=== PATIENT | male | born 1955 | race Caucasian/White ===

== ENCOUNTER 2018-04-04 16:49 | Emergency (ER) | payer BC ==
[2018-04-04 17:00] VITALS: BP 151/62
[2018-04-04] MEDS ORDERED: Sodium Chloride 0.9% 10 ML Syringe FLUSH PRN (17:30)
[2018-04-04] MEDS ORDERED: Sodium Chloride 0.9% 1,000 ML IV SCH (17:30)
[2018-04-04] MEDS ORDERED: HYDROmorphone 1 MG/ML Syringe IM ONE (17:30)
[2018-04-04] MEDS ORDERED: Ondansetron 4 MG Tab.DIS PO ONE (17:30)
--- NOTE | 2018-04-04 17:33 | EDM.PDOC ---
ED HPI GENERAL MEDICAL PROBLEM - General Chief Complaint: Abdominal Pain Stated Complaint: L SIDE ABDOMINAL PAIN Time Seen by Provider: 04/04/18 17:22 Source of Information: Reports: Patient History Limitations: Reports: No Limitations - History of Present Illness INITIAL COMMENTS - FREE TEXT/NARRATIVE: Patient is a 62-year-old male who presents to the ED complaining of left flank/ CVA tenderness that started abruptly at 2:00 today while at work. He denied any activities or trauma that precipitated the discomfort. Pain is localized rated a 8 out of 10 at its peak. Constant with waxes and waning in intensity with no radiation. He's had similar symptoms approximately 20 years ago with passing a kidney stone. Has a sensation he needs to urinate but unable to. There's been some slight discomfort with urination as well with no hematuria. He is slightly nauseated with no episodes of emesis. He denies chest pain, abdominal pain, shortness of breath, or fever. He has a history of gout currently on allopurinol. History of hypertension and hypercholesteremia and is on losartan/ HCTZ. Left Lower Abdomen Pain Score (Numeric/FACES): 8 - Related Data Allergies Allergy/AdvReac Type Severity Reaction Status Date / Time prednisone Allergy Cannot Verified 04/04/18 17:00 Remember Home Meds: Home Meds Allopurinol [Zyloprim] 1 tab PO DAILY 04/10/16 [History] Calcium Carbonate/Vitamin D3 [Calcium 500-Vit D3 200 Tablet] 1 tab PO DAILY 05/22 [History] Multivitamin [Poly-Vitamin] 1 tab PO DAILY 04/10/16 [History] Naproxen Sodium [Aleve] 1 - 3 tab PO Q6H PRN 04/10/16 [History] [place]-3/DHA/Epa/Fish Oil [Fish Oil 500 MG Softgel] 1 cap PO DAILY 04/10/16 [ History] Acetaminophen/oxyCODONE [Percocet 325-5 MG] 1 each PO Q6HR PRN #15 tab 04/04/18 [Rx] Losartan/Hydrochlorothiazide [Losartan-HCTZ 100-12.5 MG] 1 tab PO DAILY [History] Ondansetron [Zofran ODT] 4 mg PO Q6H PRN #15 tab.dis 04/04/18 [Rx] Tamsulosin [Tamsulosin 24 Hr] 0.4 mg PO QAM #7 cap.er 04/04/18 [Rx] Past Medical History HEENT History: Reports: Impaired Vision Other HEENT History: wears corrective lenses Cardiovascular History: Reports: High Cholesterol, Hypertension Respiratory History: Reports: None Gastrointestinal History: Reports: None Genitourinary History: Reports: Renal Calculus [employer] History: Reports: None Musculoskeletal History: Reports: Gout, Osteoarthritis Other Musculoskeletal History: left knee pain, R foot fracture, L hip pain Neurological History: Reports: None Psychiatric History: Reports: None Endocrine/Metabolic History: Reports: None Hematologic History: Reports: None Immunologic History: Reports: None Oncologic (Cancer) History: Reports: None Dermatologic History: Reports: Other (See Below) Other Dermatologic History: folliculits, impetigo, skin tags - Past Surgical History Musculoskeletal Surgical History: Reports: Hip Replacement, Other (See Below) Other Musculoskeletal Surgeries/Procedures:: back surgery Social & Family History - Tobacco Use Smoking Status *Q: Current Every Day Smoker Years of Tobacco use: 10 Packs/Tins Daily: 0.5 - Caffeine Use Caffeine Use: Reports: Soda - Recreational Drug Use Recreational Drug Use: No ED ROS GENERAL - Review of Systems Review Of Systems: ROS reveals no pertinent complaints other than HPI. ED EXAM, GI/ABD - Physical Exam Exam: See Below Exam Limited By: No Limitations General Appearance: Alert, WD/WN, Mild Distress Ears: Hearing Grossly Normal Nose: Normal Inspection Throat/Mouth: Normal Voice, No Airway Compromise Respiratory/Chest: No Respiratory Distress, Lungs Clear, Normal Breath Sounds, No Accessory Muscle Use Cardiovascular: Normal Peripheral Pulses, Regular Rate, Rhythm, No Murmur GI/Abdominal Exam: Normal Bowel Sounds, Soft, Non-Tender, No Organomegaly, No Distention, Other (Tenderness noted to the left upper flank along the CVA) (Male) Exam: Deferred (No pain radiating to the testicles or groin.) Back Exam: CVA Tenderness (L) Extremities: Normal Inspection Neurological: Alert, Oriented, CN II-XII Intact, Normal Cognition, No Motor/ Sensory Deficits Psychiatric: Normal Affect, Normal Mood Skin Exam: Warm, Dry, Intact, Normal Color, No Rash Course - Vital Signs Last Recorded V/S: Last Vital Signs Temp 98.1 F 04/04/18 16:57 Pulse 67 04/04/18 16:57 Resp 20 04/04/18 16:57 BP 151/62 H 04/04/18 16:57 Pulse Ox 99 04/04/18 16:57 - Orders/Labs/Meds Orders: Active Orders 24 hr Category Date Time Status Peripheral IV Care [RC] . DIRECTED Care 04/04/18 17:30 Active Sodium Chloride 0.9% [Normal Saline] 1,000 ml Med 04/04/18 17:30 Active IV ASDIRECTED Sodium Chloride 0.9% [Saline Flush] Med 04/04/18 17:30 Active 10 ml FLUSH ASDIRECTED PRN Peripheral IV Insertion Adult [OM.PC] Routine Oth 04/04/18 17:30 Ordered Medication Orders Sodium Chloride (Normal Saline) 1,000 mls @ 200 mls/hr IV ASDIRECTED AAMIR Last Admin: 04/04/18 17:45 Dose: 200 mls/hr Sodium Chloride (Saline Flush) 10 ml FLUSH ASDIRECTED PRN PRN Reason: Keep Vein Open Last Admin: 04/04/18 17:45 Dose: 10 ml Labs: Laboratory Tests 04/04/18 04/04/18 04/04/18 Range/Units 18:30 18:30 18:55 WBC 13.10 H (4.23-9.07) K/mm3 RBC 4.59 L (4.63-6.08) M/mm3 Hgb 14.1 (13.7-17.5) gm/L Hct 41.9 (40.1-51.0) % MCV 91.3 (79.0-92.2) fl MCH 30.7 (25.7-32.2) pg MCHC 33.7 (32.2-35.5) g/dl RDW Std Deviation 42.1 (35.1-43.9) fL Plt Count 171 (163-337) K/mm3 MPV 11.8 (9.4-12.3) fl Neutrophils % (Manual) 80 H (40-60) % Band Neutrophils % 0 (0-10) % Lymphocytes % (Manual) 17 L (20-40) % Atypical Lymphs % 0 % Monocytes % (Manual) 3 (2-10) % Eosinophils % (Manual) 0 L (0.8-7.0) % Basophils % (Manual) 0 L (0.2-1.2) Platelet Estimate Adequate RBC Morph Comment Normal Sodium 141 (136-145) mEq/L Potassium 3.7 (3.5-5.1) mEq/L Chloride 105 (98-107) mEq/L Carbon Dioxide 23 (21-32) mEq/L Anion Gap 16.7 H (5-15) BUN 21 H (7-18) mg/dL Creatinine 1.3 (0.7-1.3) mg/dL Est Cr Clr Drug Dosing 62.75 mL/min Estimated GFR (MDRD) 56 (>60) mL/min BUN/Creatinine Ratio 16.2 (14-18) Glucose 122 H (80-115) mg/dL Calcium 9.0 (8.5-10.1) mg/dL Total Bilirubin 0.5 (0.2-1.0) mg/dL AST 51 H (15-37) U/L ALT 76 H (16-63) U/L Alkaline Phosphatase 78 (46-116) U/L C-Reactive Protein < 0.2 (<1.0) mg/dL Total Protein 7.6 (6.4-8.2) g/dl Albumin 4.3 (3.4-5.0) g/dl Globulin 3.3 gm/dL Albumin/Globulin Ratio 1.3 (1-2) Urine Color Yellow (Yellow) Urine Appearance Clear (Clear) Urine pH 6.0 (5.0-8.0) Ur Specific [place] 1.020 (1.005-1.030) Urine Protein Trace H (Negative) Urine Glucose (UA) Negative (Negative) Urine Ketones Negative (Negative) Urine Occult Blood 3+ H (Negative) Urine Nitrite Negative (Negative) Urine Bilirubin Negative (Negative) Urine Urobilinogen 0.2 (0.2-1.0) Ur Leukocyte Esterase Negative (Negative) Urine RBC 5-10 H (0-5) /hpf Urine WBC 0-5 (0-5) /hpf Ur Epithelial Cells 0-5 (0-5) /hpf Urine Bacteria Few (FEW) /hpf Urine Mucus Few (FEW) /hpf Meds: Medications Generic Name Dose Route Start Last Admin Trade Name Freq PRN Reason Stop Dose Admin Sodium Chloride 1,000 mls @ 200 mls/hr 04/04/18 17:30 04/04/18 17:45 Normal Saline IV 200 mls/hr ASDIRECTED AAMIR Administration Sodium Chloride 10 ml 04/04/18 17:30 04/04/18 17:45 Saline Flush FLUSH 10 ml ASDIRECTED PRN Administration Keep Vein Open Discontinued Medications Generic Name Dose Route Start Last Admin Trade Name Fernando PRN Reason Stop Dose Admin Hydromorphone HCl 1 mg 04/04/18 17:30 04/04/18 17:44 Dilaudid IM 04/04/18 17:31 1 mg ONETIME ONE Administration Ondansetron HCl 4 mg 04/04/18 17:30 04/04/18 17:44 Zofran Odt PO 04/04/18 17:31 4 mg ONETIME ONE Administration - Re-Assessments/Exams Free Text/Narrative Re-Assessment/Exam: Vital signs 151/62, heart rate 67, SPO2 99% on room air. Patient's afebrile. Appears patient has pain to the left flank/CVA. Patient has a history of kidney stones or similar symptoms. Came on abruptly at 2:00 today. Unable to get comfortable. Does have the sensation of wanting to urinate and has complained of some mild pain with urination as well. No hematuria noted. IV unable to be established at this time. I have ordered Dilaudid 1 mg IM, Zofran 4 mg ODT, IV with NS. Initial labs and studies will include: CBC, chem 14 , CRP, UA, and CT of the abdomen and pelvis without contrast. CT of the abdomen Impression: 1. Findings suspicious for distal left ureteral obstruction but distal left ureter not seen at the UVJ due to artifact from bilateral hip prosthesis. Difficult to exclude a non-visualized obstructing stone. 2. Several small nonobstructing calculi within the left kidney. 3. Small gallstone within the gallbladder. Other incidental findings. Labs reviewed: WBC 13.10, Hgb 14.1, N% 80, Na 141, K+ 3.7, AG 16.7, BUN 21, Cr 1.3, Glucose 122, AST 51, ALT 76, CRP <0.2. 1932 Reassessment, patient is feeling much better. No complaints at this time. UA has not resulted out. If no infection patient will be discharged home. Departure - Departure Time of Disposition: 19:32 Disposition: Home, Self-Care 01 Condition: Good Clinical Impression: Kidney stone on left side Hematuria Qualifiers: Hematuria type: unspecified type Qualified Code(s): R31.9 - Hematuria, unspecified - Discharge Information Prescriptions: Acetaminophen/oxyCODONE [Percocet 325-5 MG] 1 each PO Q6HR PRN #15 tab PRN Reason: Pain (Severe 7-10) Ondansetron [Zofran ODT] 4 mg PO Q6H PRN #15 tab.dis PRN Reason: Nausea/Vomiting Tamsulosin [Tamsulosin 24 Hr] 0.4 mg PO QAM #7 cap.er Instructions: Kidney Stones, Renal Colic, Pain Medicine Instructions, Easy-to- Read Referrals: Loco Meneses MD [Primary Care Provider] - Forms: ED Department Discharge, ED Return to Work/School Form Additional Instructions: Suspect he had a kidney stone on the left side but as discussed this was not visualized. Will treat you as if you have a kidney stone thus take the Percocet for severe pain as directed. For nausea take Zofran as directed. Will also have you take Flomax 1 tab daily until kidney stone passes. Strain all urine voids. If kidney stone has not passed in the next 3-4 days call and make an appointment with a urologist of your choice. Please return back to the ED for the reasons as discussed. No driving this evening or while taking the Percocet. May utilize Tylenol and ibuprofen for mild to moderate discomfort. If kidney stone passes see PCP for recheck of UA to ensure blood in urine has resolved and for slight elevation of LFTs. - My Orders Last 24 Hours: My Active Orders 04/04/18 17:30 Peripheral IV Care [RC] . DIRECTED Sodium Chloride 0.9% [Normal Saline] 1,000 ml IV ASDIRECTED Sodium Chloride 0.9% [Saline Flush] 10 ml FLUSH ASDIRECTED PRN Peripheral IV Insertion Adult [OM.PC] Routine - Assessment/Plan Last 24 Hours: My Active Orders 04/04/18 17:30 Peripheral IV Care [RC] . DIRECTED Sodium Chloride 0.9% [Normal Saline] 1,000 ml IV ASDIRECTED Sodium Chloride 0.9% [Saline Flush] 10 ml FLUSH ASDIRECTED PRN Peripheral IV Insertion Adult [OM.PC] Routine
--- NOTE | 2018-04-04 18:39 | CT ---
CT abdomen and pelvis Technique: Multiple axial sections were obtained from above the dome of the diaphragm inferiorly through the pubic symphysis. Intravenous and oral contrast not utilized. Study has been performed as a ureteral stone protocol. Comparison: No prior CT abdomen or pelvis exam. Findings: Left kidney shows slight surrounding inflammatory change and mildly prominent ureter. Findings are suspicious for distal ureteral obstruction but region around the UVJ is obscured from bilateral hip prosthesis and difficult to exclude a distal ureteral stone. Several small nonobstructing calculi are seen within the left kidney. No other ureteral stones are seen. Visualized lung bases shows nothing acute. Noncontrast appearance of the liver and spleen appears within normal limits. Right adrenal gland appears within normal limits. Left adrenal gland shows fullness within the margaret most likely incidental. Pancreas appears within normal limits. Gallbladder contains a small gallstone. Aorta shows atherosclerotic calcification which continues into the iliac vessels without aneurysm. No retroperitoneal adenopathy is seen. Appendix is seen which is normal. No pelvic mass or adenopathy is seen. Bone window settings were reviewed which shows previous lumbar spine surgery with diffuse disc space narrowing and vacuum phenomena. Small umbilical hernia is seen which contains fat. Impression: 1. Findings suspicious for distal left ureteral obstruction but distal left ureter not seen at the UVJ due to artifact from bilateral hip prosthesis. Difficult to exclude a non-visualized obstructing stone. 2. Several small nonobstructing calculi within the left kidney. 3. Small gallstone within the gallbladder. Other incidental findings. Diagnostic code #3
== END 2018-04-04 20:05 | disposition home or self-care (01) ==
LOC: JD.ED 16:49
DX: N20.2 Calculus of kidney with calculus of ureter (principal); R31.9 Hematuria, unspecified; F17.210 Nicotine dependence, cigarettes, uncomplicated; I10 Essential (primary) hypertension; E78.00 Pure hypercholesterolemia, unspecified; Z79.899 Other long term (current) drug therapy; Z88.8 Allergy status to other drugs, medicaments and biological substances
CPT/HCPCS: 36415; 74176; 80053; 81001; 85007; 85027; 86140; 96360; 96361; 96372; 99284; A9270; J1170; J7040; 99283

== ENCOUNTER 2022-04-13 14:47 | Emergency (ER) | payer MEDICARE, BC ==
[2022-04-13] MEDS ORDERED: Sodium Chloride 0.9% 10 ML Syringe FLUSH PRN (15:16)
[2022-04-13] MEDS ORDERED: Sodium Chloride 0.9% 1,000 ML IV STA (15:16)
[2022-04-13] MEDS ORDERED: Ondansetron 4 MG/2 ML SDV IVPUSH ONE (15:16)
[2022-04-13] MEDS ORDERED: HYDROmorphone 0.5 MG/0.5 ML Syringe IVPUSH ONE (15:16)
[2022-04-13 20:01] VITALS: BP 136/76; PULSE 58
== END 2022-04-13 18:38 | disposition home or self-care (01) ==
LOC: JD.ED 14:47
DX: N13.2 Hydronephrosis with renal and ureteral calculous obstruction (principal); R22.42 Localized swelling, mass and lump, left lower limb; E78.00 Pure hypercholesterolemia, unspecified; I10 Essential (primary) hypertension; M10.9 Gout, unspecified; Z91.018 Allergy to other foods; Z88.8 Allergy status to other drugs, medicaments and biological substances; Z79.899 Other long term (current) drug therapy; Z87.891 Personal history of nicotine dependence
CPT/HCPCS: 36415; 74176; 80053; 81001; 85025; 86140; 96361; 96365; 96375; 99284; J1170; J2405; J3490; J7030